=== PATIENT | male | born 1955 | race Caucasian/White ===

== ENCOUNTER 2016-08-15 15:45 | Observation (INO) | payer OTHER ==
[~2016-08-15] VITALS: Ht 190.5 cm; Wt 149.1 kg
[~2016-08-15 15:45] MED LIST: ASPI81TA28 PO; CRG25 PO; DILT120C68 PO; LOSA1TAB38 PO; LSX80 PO; SPR25 PO; WARF10TA4 PO; WARF5TAB7 PO
[2016-08-15] MEDS ORDERED: PIPERACILLIN/TAZOBACTAM 4.5 GM/100ML D5W IV STA (17:56)
[2016-08-15] MEDS ORDERED: VANCOMYCIN INJ 1,000 MG in SODIUM CHLORIDE 0.9% 250ML 250 ML IV STA (17:56)
[2016-08-15] MEDS ORDERED: IBUP-1050 PO (18:46)
[2016-08-15] MEDS ORDERED: OXYM0.056 NAE (18:46)
--- NOTE | 2016-08-15 18:55 | DIAGNOSTIC IMAGING REPORT ---
CHEST ONE VIEW PORTABLE CLINICAL HISTORY: R foot infection dyspnea COMPARISON STUDY: 09/17/2009 FINDINGS: Moderate stable cardiomegaly. Prior median sternotomy. Cardiac pacemaker/fibrillator. Lungs are clear. IMPRESSION: Stable cardiomegaly. Otherwise negative study Electronically signed by: Mo Taylor M.D. 08/15/2016 6:54 PM Dictated Date/Time: 08/15/2016 6:53 PM
--- NOTE | 2016-08-15 18:58 | DIAGNOSTIC IMAGING REPORT ---
RIGHT FOOT MIN 3 VIEWS ROUTINE CLINICAL HISTORY: R foot infection Right infection COMPARISON: None. DISCUSSION: The bones and joint spaces appear intact. There is no evidence of fracture, dislocation or bony disease. Dorsal soft tissue edema. No acute bony abnormality. IMPRESSION: Soft tissue edema. No acute bony abnormality. Electronically signed by: Mo Taylor M.D. 08/15/2016 6:57 PM Dictated Date/Time: 08/15/2016 6:55 PM
[2016-08-15] MEDS ORDERED: DIPHTHERIA/TETANUS/PERTUSSIS 0.5 ML SYR/VIAL IM. ONE (19:15)
[2016-08-15 19:30] LABS: BASO % 0.6 %; BASO ABS # 0.04 K/uL (0-0.2); COMPLETE YES; EOS % 5.4 %; HEMATOCRIT 41.7 % (42-52); IG% 0.6 %; LYMPH % 15.4 %; LYMPH ABS # 0.97 K/uL (1.2-3.4); MEAN CELL VOLUME 86.3 fL (80-100); MEAN CORPUSCULAR HEMOGLOBIN 29.4 pg (25-34); MEAN CORPUSCULAR HGB CONC 34.1 g/dl (32-36); MEAN PLATELET VOLUME 10.5 fL (7.4-10.4); MONO % 12.4 %; NEUT % 65.6 %; PLATELET COUNT 227 K/uL (130-400); RED BLOOD COUNT 4.83 M/uL (4.7-6.1); WHITE BLOOD COUNT 6.29 K/uL (4.8-10.8)
[2016-08-15 19:48] LABS: BUN/CREATININE RATIO 15.8 (10-20); CALCIUM 9.1 mg/dl (8.5-10.1); CREATININE 1.1 mg/dl (0.60-1.40); POTASSIUM 4.4 mmol/L (3.5-5.1)
--- NOTE | 2016-08-15 20:02 | EMERGENCY ROOM VISIT NOTE ---
ED Visit Note First contact with patient: 17:35 I have seen and examined this patient with Laz Dunbar and generally agree with the treatment plan as discussed. Current/Historical Medications Scheduled Carvedilol (Carvedilol), 25 MG PO BID Diltiazem Hcl Ext Rel (Tiazac), 120 MG PO QAM Furosemide (Furosemide), 80 MG PO DAILY@1800 Losartan Potassium (Cozaar), 100 MG PO QAM Oxymetazoline Hcl (Afrin), 1 SPRAY BONITA QAM Spironolactone (Spironolactone), 25 MG PO QPM Warfarin Sod (Jantoven), 10 MG PO 5XWK Warfarin Sod (Jantoven), 7.5 MG PO 2XWK Scheduled PRN Ibuprofen (Advil), 200 MG PO Q6 PRN for Pain Allergies Coded Allergies: Lisinopril (Verified Adverse Reaction, Unknown, "UNCONTROLABLE COUGH.", ) Uncoded Allergies: BANDAIDS (Allergy, Mild, RASH, 09/15/14) Vital Signs Date Time Temp Pulse Resp B/P Pulse Ox O2 Delivery O2 Flow Rate FiO2 08/15/16 17:50 36.8 77 22 150/88 98 Room Air 08/15/16 15:47 36.6 82 18 126/78 97 Room Air Laboratory Results 08/15/16 18:00 Red Blood Count 4.83, Mean Corpuscular Volume 86.3, Mean Corpuscular Hemoglobin 29.4, Mean Corpuscular Hemoglobin Concent 34.1, Mean Platelet Volume 10.5, Neutrophils (%) (Auto) 65.6, Lymphocytes (%) (Auto) 15.4, Monocytes (%) (Auto) 12.4, Eosinophils (%) (Auto) 5.4, Basophils (%) (Auto) 0.6, Neutrophils # (Auto ) 4.12, Lymphocytes # (Auto) 0.97, Monocytes # (Auto) 0.78, Eosinophils # (Auto ) 0.34, Basophils # (Auto) 0.04 08/15/16 18:00 Test 08/15/16 18:00 08/15/16 18:14 White Blood Count 6.29 K/uL (4.8-10.8) Red Blood Count 4.83 M/uL (4.7-6.1) Hemoglobin 14.2 g/dL (14.0-18.0) Hematocrit 41.7 % (42-52) Mean Corpuscular Volume 86.3 fL (80-100) Mean Corpuscular Hemoglobin 29.4 pg (25-34) Mean Corpuscular Hemoglobin Concent 34.1 g/dl (32-36) Platelet Count 227 K/uL (130-400) Mean Platelet Volume 10.5 fL (7.4-10.4) Neutrophils (%) (Auto) 65.6 % Lymphocytes (%) (Auto) 15.4 % Monocytes (%) (Auto) 12.4 % Eosinophils (%) (Auto) 5.4 % Basophils (%) (Auto) 0.6 % Neutrophils # (Auto) 4.12 K/uL (1.4-6.5) Lymphocytes # (Auto) 0.97 K/uL (1.2-3.4) Monocytes # (Auto) 0.78 K/uL (0.11-0.59) Eosinophils # (Auto) 0.34 K/uL (0-0.5) Basophils # (Auto) 0.04 K/uL (0-0.2) RDW Standard Deviation 44.5 fL (36.4-46.3) RDW Coefficient of Variation 14.2 % (11.5-14.5) Immature Granulocyte % (Auto) 0.6 % Immature Granulocyte # (Auto) 0.04 K/uL (0.00-0.02) Erythrocyte Sedimentation Rate 17 mm/hr (0-14) Anion Gap 7.0 mmol/L (3-11) Est Creatinine Clear Calc Drug Dose 108.7 ml/min Estimated GFR () 82.9 Estimated GFR (Non- 71.6 BUN/Creatinine Ratio 15.8 (10-20) Calcium Level 9.1 mg/dl (8.5-10.1) C-Reactive Protein 0.70 mg/dl (0-0.29) Bedside Lactic Acid Venous 1.17 mmol/L (0.90-1.70) Medications Administered Medications (Trade) Dose Ordered Sig/Bronwyn Route Start Time Stop Time Status Last Admin Dose Admin Vancomycin HCl/ Sodium Chloride (Vancomycin Inj/ Nss 250ml) 270 ml @ 125 mls/hr NOW STAT IV 08/15/16 17:56 08/15/16 20:05 08/15/16 18:57 125 MLS/HR Piperacillin Sod/ Tazobactam Sod (Zosyn Iv) 4.5 gm NOW STAT IV 08/15/16 17:56 08/15/16 18:02 DC 08/15/16 18:57 4.5 GM Diphtheria/ Pertussis/Tetanus Vacc (Adacel Inj) 0.5 ml ONCE ONCE IM. 08/15/16 19:15 08/15/16 19:16 DC 08/15/16 19:32 0.5 ML Departure Information Referrals No Doctor, Assigned (PCP) Patient Instructions [facility]
--- NOTE | 2016-08-15 20:28 | History and Physical ---
History & Physical Date & Time of Service: Aug 15, 2016 at 20:28 . Chief Complaint: right foot pain . Primary Care Physician: No Doctor, Assigned . History of Present Illness Source: patient, family, clinic records, hospital records 61 YO male followed by Dr. Kofi Banda for primary care as well as Cardiology. History of bicuspid aortic valve, s/p mechanical AVR, aneurysm ascending aorta, s/p repair, CAD, systolic CHF, chronic AF on warfarin. Dropped firewood on his right foot 1 week prior to admission. Developed progressive pain and swelling of the foot with a small amount of clear drainage. No fever, chills, sweats. Uncertain when last tetanus booster was. Took acetaminophen and ibuprofen with some relief. He was seen in an urgent care facility and referred to the ED. . Past Medical/Surgical History Chronic and Resolved Medical Problems: (1) Anticoagulated on warfarin Status: Chronic (2) Ascending aortic aneurysm Permanent Comment: s/p repair Status: Chronic (3) Atrial fibrillation Status: Chronic (4) Bicuspid aortic valve Permanent Comment: s/p AVR Status: Chronic (5) Coronary artery disease Status: Chronic (6) Hypertension Status: Chronic (7) Systolic CHF, chronic Status: Chronic (8) Vitreous hemorrhage of left eye Status: Resolved Surgical Problems: (1) Status post aortic valve replacement with prosthetic valve Status: Chronic (2) Status post thoracic aortic aneurysm repair Permanent Comment: 2010 Status: Chronic . Family History FH: heart disease FH: hypertension Social History Smoking Status: Current Every Day Smoker Alcohol Use: occasionally Immunizations History of Influenza Vaccine: Unknown History of Tetanus Vaccine?: Unknown History of Pneumococcal: Yes Pneumococcal Date: Aug 26, 2009 History of Hepatitis B Vaccine: Unknown Multi-Drug Resistant Organisms History of MDRO: No Allergies Coded Allergies: Lisinopril (Verified Adverse Reaction, Unknown, "UNCONTROLABLE COUGH.", ) Uncoded Allergies: BANDAIDS (Allergy, Mild, RASH, 09/15/14) Home Medications Scheduled Carvedilol (Carvedilol), 25 MG PO BID Diltiazem Hcl Ext Rel (Tiazac), 120 MG PO QAM Furosemide (Furosemide), 80 MG PO DAILY@1800 Losartan Potassium (Cozaar), 100 MG PO QAM Oxymetazoline Hcl (Afrin), 1 SPRAY BONITA QAM Spironolactone (Spironolactone), 25 MG PO QPM Warfarin Sod (Jantoven), 10 MG PO 5XWK Warfarin Sod (Jantoven), 7.5 MG PO 2XWK Scheduled PRN Ibuprofen (Advil), 200 MG PO Q6 PRN for Pain Review of Systems Constitutional: No chills, No fever, No sweats, No weight loss Eyes: + worsening of vision (no recent changes), No diplopia ENT: + nasal symptoms, No sore throat Respiratory: + dyspnea on exertion, No cough Cardiovascular: + edema (chronic), No chest pain, No palpitations Abdomen: No GI bleeding, No diarrhea, No nausea, No pain, No vomiting Musculoskeletal: + problem reported (right foot pain), No joint pain Genitourinary - Male: No dysuria, No hematuria Endocrine: No excessive thirst, No excessive urination, No fatigue Hematologic / Lymphatic: + abnormal bleeding/bruising, No swollen lymph nodes Integumentary: No itch, No new/changing skin lesions, No rash Physical Exam Vital Signs Date Time Temp Pulse Resp B/P Pulse Ox O2 Delivery O2 Flow Rate FiO2 08/15/16 20:16 77 22 156/99 98 Room Air 08/15/16 17:50 36.8 77 22 150/88 98 Room Air 08/15/16 15:47 36.6 82 18 126/78 97 Room Air General Appearance: no apparent distress, + obese Head: normocephalic, atraumatic Eyes: normal inspection, PERRL, EOMI, sclerae normal ENT: normal ENT inspection, hearing grossly normal, pharynx normal Neck: supple, no adenopathy, thyroid normal, no JVD, trachea midline Respiratory/Chest: lungs clear, no respiratory distress, no accessory muscle use Cardiovascular: no gallop, + irregularly irregular, + pertinent finding ( mechanical valve sounds in aortic position; 1-2+ pretibial edema) Abdomen/GI: normal bowel sounds, non tender, soft, no organomegaly, no pulsatile mass Extremities/Musculoskelatal: + pertinent finding (1-2+ pretibial edema with chronic venous stasis changes; 2 cm ulceration dorsum of right foot; erythema and swelling dorsum right foot) Neurologic/Psych: ux design manager II-XII nml as tested (PERRL, EOMI, no facial palsy, no dysarthria), no motor/sensory deficits (motor strength grossly intact), alert, normal mood/affect, oriented x 3 Skin: warm/dry Lymphatic: no adenopathy Diagnostics Laboratory Results Results Past 24 Hours Test 08/15/16 18:00 08/15/16 18:14 Range/Units White Blood Count 6.29 4.8-10.8 K/uL Red Blood Count 4.83 4.7-6.1 M/uL Hemoglobin 14.2 14.0-18.0 g/dL Hematocrit 41.7 42-52 % Mean Corpuscular Volume 86.3 80-100 fL Mean Corpuscular Hemoglobin 29.4 25-34 pg Mean Corpuscular Hemoglobin Concent 34.1 32-36 g/dl Platelet Count 227 130-400 K/uL Mean Platelet Volume 10.5 7.4-10.4 fL Neutrophils (%) (Auto) 65.6 % Lymphocytes (%) (Auto) 15.4 % Monocytes (%) (Auto) 12.4 % Eosinophils (%) (Auto) 5.4 % Basophils (%) (Auto) 0.6 % Neutrophils # (Auto) 4.12 1.4-6.5 K/uL Lymphocytes # (Auto) 0.97 1.2-3.4 K/uL Monocytes # (Auto) 0.78 0.11-0.59 K/uL Eosinophils # (Auto) 0.34 0-0.5 K/uL Basophils # (Auto) 0.04 0-0.2 K/uL RDW Standard Deviation 44.5 36.4-46.3 fL RDW Coefficient of Variation 14.2 11.5-14.5 % Immature Granulocyte % (Auto) 0.6 % Immature Granulocyte # (Auto) 0.04 0.00-0.02 K/uL Erythrocyte Sedimentation Rate 17 0-14 mm/hr Sodium Level 140 136-145 mmol/L Potassium Level 4.4 3.5-5.1 mmol/L Chloride Level 104 98-107 mmol/L Carbon Dioxide Level 29 21-32 mmol/L Anion Gap 7.0 3-11 mmol/L Blood Urea Nitrogen 17 7-18 mg/dl Creatinine 1.10 0.60-1.40 mg/dl Est Creatinine Clear Calc Drug Dose 108.7 ml/min Estimated GFR () 82.9 Estimated GFR (Non- 71.6 BUN/Creatinine Ratio 15.8 10-20 Random Glucose 109 70-99 mg/dl Calcium Level 9.1 8.5-10.1 mg/dl C-Reactive Protein 0.70 0-0.29 mg/dl Bedside Lactic Acid Venous 1.17 0.90-1.70 mmol/L Microbiology Results 08/15/16 Blood Culture, Received Pending 08/15/16 Blood Culture, Received Pending Diagnostic Radiology CHEST ONE VIEW PORTABLE COMPARISON STUDY: 09/17/2009 FINDINGS: Moderate stable cardiomegaly. Prior median sternotomy. Cardiac pacemaker/fibrillator. Lungs are clear. IMPRESSION: Stable cardiomegaly. Otherwise negative study Electronically signed by: Mo Taylor M.D. 08/15/2016 6:54 PM RIGHT FOOT MIN 3 VIEWS ROUTINE DISCUSSION: The bones and joint spaces appear intact. There is no evidence of fracture, dislocation or bony disease. Dorsal soft tissue edema. No acute bony abnormality. IMPRESSION: Soft tissue edema. No acute bony abnormality. Electronically signed by: Mo Taylor M.D. 08/15/2016 6:57 PM EKG EKG performed at 18:24 reviewed and demonstrated AF at 70 / minute, poor R-wave progression, biphasic / inverted T-waves inferiorly. . Impression Assessment and Plan CELLULITIS RIGHT FOOT Dropped piece of firewood on foot; now with ulceration and cellulitis. No fever or leukocytosis, but c-reactive protein elevated. No apparent osteomyelitis per plain films of foot. Unknown when last tetanus booster was. Received diphtheria/tetanus/pertussis vaccine in ED. Blood cultures obtained in ED. Received IV vancomycin and piperacillin/tazobactam which will be continued. Consult ID for their input. CHRONIC LEFT VENTRICULAR SYSTOLIC HEART FAILURE Compensated. Continue carvedilol, losartan, spironolactone, furosemide. CAD No anginal symptoms. Continue carvedilol. CHRONIC AF Rate controlled. Continue carvedilol and diltiazem. Continue warfarin. INR 2.0. Increase warfarin dose to 10 mg daily- monitor closely while on antibiotic therapy. S/P AVR Continue warfarin as discussed above. HYPERTENSION BP high in ED, but did not take his evening meds yet. Continue carvedilol, diltiazem, losartan, diuretics. Follow and titrate Rx. VTE PROPHYLAXIS Continue warfarin. DISPOSITION Admit to Med-Surg Unit. Expected discharge to home. Follow-up with Dr. Kofi Banda. . VTE Prophylaxis VTE Risk Assessment Done? Y/N: Yes Risk Level: Moderate Given or contraindicated: Warfarin (Coumadin) Additional Copies To Kofi Banda D.O.
--- NOTE | 2016-08-15 22:16 | EMERGENCY ROOM VISIT NOTE ---
History First contact with patient: 17:35 Chief Complaint: FOOT PAIN Stated Complaint: FRACTURE IN RT FOOT WITH OPEN WOUND History of Present Illness The patient is a 61 year old male who presents to the Emergency Room with complaints of a right foot infection and fractured. The patient reports that he dropped a board on his foot last Monday. The patient did have a wound on the foot that he cleansed and covered with antibiotic ointment and dressing. He did not seek any further follow-up for his injury. The patient reports that over the past 3 days, he has noticed redness and swelling of the foot. He was seen today at [facility] urgent care with an x-ray showing a fracture. He was then sent here for further management. The patient denies any fevers or chills or significant drainage from the wound. The patient has had a prior history of cellulitis requiring hospitalization. The patient and family deny any prior history of antibiotic resistant infections. The patient denies any significant pain with nonweightbearing. Tetanus immunization is unknown. Review of Systems HEENT: Denies dizziness, visual problems, hearing loss, tinnitus. Denies difficulty swallowing or oral lesions. PULMONARY: Denies cough, shortness of breath, sputum production or hemoptysis. CARDIOVASCULAR: Denies chest pain, palpitations, dyspnea on exertion, orthopnea or peripheral edema. GASTROINTESTINAL: Denies diarrhea, constipation, nausea, vomiting, or abdominal pain. GENITOURINARY: Denies dysuria, frequency, urgency or nocturia. NEUROLOGIC: Denies history of epilepsy, CVA, TIA or chronic headaches. MUSCULOSKELETAL: Denies history of joint tenderness/swelling. SKIN: Denies rashes or lesions. PSYCHIATRIC: Denies history of depression or mental illness. ENDOCRINE: Denies history of diabetes or thyroid disorders. Past Medical/Surgical History Medical Problems: (1) Atrial Fibrillation (2) Cardiomegaly (3) Cellulitis of foot (4) Oswaldo Aorta Valv Insuffic (5) Congestive Heart Failure Nos (6) Hypertension Nos (7) Lichenification (8) Tobacco Use Disorder Surgical Problems: (1) Cardiac Pacemaker In Situ (2) Heart Valve Transplant (3) Unilat Inguinal Hernia Family History FH: heart disease FH: hypertension Social History Smoking Status: Never Smoker Alcohol Use: none Marital Status: Housing Status: lives with family Occupation Status: disabled Current/Historical Medications Scheduled Carvedilol (Carvedilol), 25 MG PO BID Diltiazem Hcl Ext Rel (Tiazac), 120 MG PO QAM Furosemide (Furosemide), 80 MG PO DAILY@1800 Losartan Potassium (Cozaar), 100 MG PO QAM Oxymetazoline Hcl (Afrin), 1 SPRAY BONITA QAM Spironolactone (Spironolactone), 25 MG PO QPM Warfarin Sod (Jantoven), 10 MG PO 5XWK Warfarin Sod (Jantoven), 7.5 MG PO 2XWK Scheduled PRN Ibuprofen (Advil), 200 MG PO Q6 PRN for Pain Allergies Coded Allergies: Lisinopril (Verified Adverse Reaction, Unknown, "UNCONTROLABLE COUGH.", ) Uncoded Allergies: BANDAIDS (Allergy, Mild, RASH, 09/15/14) Physical Exam Vital Signs Date Time Temp Pulse Resp B/P Pulse Ox O2 Delivery O2 Flow Rate FiO2 08/15/16 20:16 77 22 156/99 98 Room Air 08/15/16 17:50 36.8 77 22 150/88 98 Room Air 08/15/16 15:47 36.6 82 18 126/78 97 Room Air Physical Exam CONSTITUTIONAL: Healthy and well nourished. Alert and oriented X 3 with positive affect. Patient does not appear in any acute distress. HEENT: Normocephalic, atraumatic. Pupils equal, round and reactive. NECK: Full active range of motion without discomfort. RESPIRATORY: Clear to auscultation bilaterally with no wheezing, crackles, rhonchi or stridor. CARDIOVASCULAR: Regular rate and rhythm with no murmurs, rubs or gallops. GASTROINTESTINAL: Bowel sounds present in all quadrants. Soft and nontender to palpation. MUSCULOSKELETAL: Examination of the right foot shows an open wound with minimal drainage. The patient has notable edema and erythema of the dorsum of the foot. The patient has significant lichenification of the plantar aspect of the foot. He has chronic skin changes to bilateral lower extremities without edema or other open wounds. Pedal pulses are intact. INTEGUMENTARY: No rash or other significant dermatologic conditions noted. NEUROLOGIC: Right foot and toes are sensory intact. Medical Decision & Procedures ER Provider Diagnostic Interpretation: My interpretation of right foot x-rays does not show any acute fractures, dislocation or radiopaque foreign bodies. Radiologist report is as follows: RIGHT FOOT MIN 3 VIEWS ROUTINE CLINICAL HISTORY: R foot infection Right infection COMPARISON: None. DISCUSSION: The bones and joint spaces appear intact. There is no evidence of fracture, dislocation or bony disease. Dorsal soft tissue edema. No acute bony abnormality. IMPRESSION: Soft tissue edema. No acute bony abnormality. CHEST ONE VIEW PORTABLE CLINICAL HISTORY: R foot infection dyspnea COMPARISON STUDY: 09/17/2009 FINDINGS: Moderate stable cardiomegaly. Prior median sternotomy. Cardiac pacemaker/fibrillator. Lungs are clear. IMPRESSION: Stable cardiomegaly. Otherwise negative study My interpretation of an ECG shows atrial fibrillation at a rate of 72 bpm. Comparison with an ECG dated 09/21/09 does not show any significant changes. No obvious ST elevations. Laboratory Results 08/15/16 18:00 Red Blood Count 4.83, Mean Corpuscular Volume 86.3, Mean Corpuscular Hemoglobin 29.4, Mean Corpuscular Hemoglobin Concent 34.1, Mean Platelet Volume 10.5, Neutrophils (%) (Auto) 65.6, Lymphocytes (%) (Auto) 15.4, Monocytes (%) (Auto) 12.4, Eosinophils (%) (Auto) 5.4, Basophils (%) (Auto) 0.6, Neutrophils # (Auto ) 4.12, Lymphocytes # (Auto) 0.97, Monocytes # (Auto) 0.78, Eosinophils # (Auto ) 0.34, Basophils # (Auto) 0.04 08/15/16 18:00 Test 08/15/16 18:00 08/15/16 18:10 08/15/16 18:14 White Blood Count 6.29 K/uL (4.8-10.8) Red Blood Count 4.83 M/uL (4.7-6.1) Hemoglobin 14.2 g/dL (14.0-18.0) Hematocrit 41.7 % (42-52) Mean Corpuscular Volume 86.3 fL (80-100) Mean Corpuscular Hemoglobin 29.4 pg (25-34) Mean Corpuscular Hemoglobin Concent 34.1 g/dl (32-36) Platelet Count 227 K/uL (130-400) Mean Platelet Volume 10.5 fL (7.4-10.4) Neutrophils (%) (Auto) 65.6 % Lymphocytes (%) (Auto) 15.4 % Monocytes (%) (Auto) 12.4 % Eosinophils (%) (Auto) 5.4 % Basophils (%) (Auto) 0.6 % Neutrophils # (Auto) 4.12 K/uL (1.4-6.5) Lymphocytes # (Auto) 0.97 K/uL (1.2-3.4) Monocytes # (Auto) 0.78 K/uL (0.11-0.59) Eosinophils # (Auto) 0.34 K/uL (0-0.5) Basophils # (Auto) 0.04 K/uL (0-0.2) RDW Standard Deviation 44.5 fL (36.4-46.3) RDW Coefficient of Variation 14.2 % (11.5-14.5) Immature Granulocyte % (Auto) 0.6 % Immature Granulocyte # (Auto) 0.04 K/uL (0.00-0.02) Erythrocyte Sedimentation Rate 17 mm/hr (0-14) Anion Gap 7.0 mmol/L (3-11) Est Creatinine Clear Calc Drug Dose 108.7 ml/min Estimated GFR () 82.9 Estimated GFR (Non- 71.6 BUN/Creatinine Ratio 15.8 (10-20) Calcium Level 9.1 mg/dl (8.5-10.1) C-Reactive Protein 0.70 mg/dl (0-0.29) Bedside Lactic Acid Venous 1.17 mmol/L (0.90-1.70) The above labs were reviewed. Bedside lactic acid is normal. C-reactive protein and sedimentation rate are elevated. Electrolytes are normal. Medications Administered Medications (Trade) Dose Ordered Sig/Bronwyn Route Start Time Stop Time Status Last Admin Dose Admin Vancomycin HCl/ Sodium Chloride (Vancomycin Inj/ Nss 250ml) 270 ml @ 125 mls/hr NOW STAT IV 08/15/16 17:56 08/15/16 20:05 DC 08/15/16 18:57 125 MLS/HR Piperacillin Sod/ Tazobactam Sod (Zosyn Iv) 4.5 gm NOW STAT IV 08/15/16 17:56 08/15/16 18:02 DC 08/15/16 18:57 4.5 GM Diphtheria/ Pertussis/Tetanus Vacc (Adacel Inj) 0.5 ml ONCE ONCE IM. 08/15/16 19:15 08/15/16 19:16 DC 08/15/16 19:32 0.5 ML ED Course Patient history and physical exam were performed. Nurse's notes were reviewed. Vital signs were reviewed and normal. The patient is afebrile. He does not appear in any acute distress. The patient did not bring any x-ray images with him. IV access was established, and labs were drawn. Given patient history of a reported fracture, I did elect to start IV antibiotics as well. The patient was administered IV Rocephin and vancomycin after blood cultures 2 were collected. The patient was administered Adacel IM. Point of care lactic acid was normal. Remaining labs were reviewed without leukocytosis or electrolyte abnormality. Sedimentation rate and CRP are elevated. X-rays of the right foot does not show any acute findings. Portable chest x-ray shows stable cardiomegaly, an ECG shows atrial fibrillation. The patient was also seen and examined by Dr. Lopez, ED attending physician, who agrees that hospitalist evaluation is warranted for an acute cellulitis. Consultation was placed with Dr. Polo, [facility] hospitalist for further evaluation. Please see his dictation for further treatment and final disposition. Impression Primary Impression: Cellulitis of foot Additional Impression: Unspecified open wound, right foot, initial encounter Departure Information Referrals No Doctor, Assigned (PCP) Patient Instructions [facility] Problem Qualifiers
[2016-08-15 22:20] LABS: PROTHROMBIN TIME (PATIENT) 21.5 SECONDS (9.0-12.0)
[2016-08-15] MEDS ORDERED: PIPERACILL/TAZOBAC CONSULT ACTIVE PRN (22:45)
[2016-08-15] MEDS ORDERED: IV FLUIDS COMPLETED PRN (22:45)
[2016-08-15] MEDS ORDERED: VANCOMYCIN CONSULT ACTIVE PRN (22:45)
[2016-08-15] MEDS ORDERED: WARFARIN SOD 5 MG TAB PO STA (22:48)
[2016-08-15] MEDS ORDERED: SPIRONOLACTONE 25 MG TAB PO ONE (23:00)
[2016-08-15] MEDS ORDERED: VANCOMYCIN INJ 2,700 MG in SODIUM CHLORIDE 0.9% 500ML 500 ML IV SCH (23:00)
[2016-08-15] MEDS ORDERED: CARVEDILOL 25 MG TAB PO ONE (23:00)
[2016-08-15] MEDS ORDERED: FUROSEMIDE 80 MG TAB PO ONE (23:00)
[2016-08-16] VITALS: BP 122/82; PULSE 77; TEMP 36.8; O2SAT 96
[2016-08-16] MEDS: PIPERACILL/TAZOBAC IV 4.5 GM in DEXTROSE 5% 100ML 100 ML IV SCH ×3 (01:17→15:50)
[2016-08-16 02:20] VITALS: Ht 190.5 cm; Wt 149.1 kg
[2016-08-16] MEDS: CARVEDILOL 25 MG TAB PO SCH ×2 (05:55→18:08)
[2016-08-16] MEDS: DILTIAZEM HCL 120 MG EXT REL CAP PO SCH (05:55)
[2016-08-16] MEDS: LOSARTAN POTASSIUM 50 MG TAB PO SCH (05:56)
[2016-08-16 05:57] VITALS: BP 110/74; PULSE 76
[2016-08-16 08:00] VITALS: BP 130/72; PULSE 75; TEMP 36.3; O2SAT 95
[2016-08-16] MEDS ORDERED: DILTIAZEM HCL 120 MG EXT REL CAP PO SCH (09:00)
[2016-08-16] MEDS ORDERED: CARVEDILOL 25 MG TAB PO SCH (09:00)
[2016-08-16] MEDS ORDERED: LOSARTAN POTASSIUM 50 MG TAB PO SCH (09:00)
--- NOTE | 2016-08-16 09:39 | Pharmacy Progress Note ---
Pharmacy Antibiotic Consult Date of Service: Aug 16, 2016. Pharmacy Dosing Scope Pharmacy is consulted to initiate vancomycin and zosyn IV dosing therapy, order appropriate labs and adjust drug dose/frequency. Subjective The patient is a 61 year old male admitted on Aug 15, 2016 at 20:27. Objective Height (Feet): 6 Height (Inches): 3.00 Weight (Kilograms): 149.100 Lab Results (24hrs): Laboratory Tests Test 08/15/16 18:00 BUN/Creatinine Ratio 15.8 Blood Urea Nitrogen 17 mg/dl Creatinine 1.10 mg/dl White Blood Count 6.29 K/uL Red Blood Count 4.83 M/uL Hemoglobin 14.2 g/dL Hematocrit 41.7 % Mean Corpuscular Volume 86.3 fL Mean Corpuscular Hemoglobin 29.4 pg Mean Corpuscular Hemoglobin Concent 34.1 g/dl Platelet Count 227 K/uL Mean Platelet Volume 10.5 fL Neutrophils (%) (Auto) 65.6 % Lymphocytes (%) (Auto) 15.4 % Monocytes (%) (Auto) 12.4 % Eosinophils (%) (Auto) 5.4 % Basophils (%) (Auto) 0.6 % Neutrophils # (Auto) 4.12 K/uL Lymphocytes # (Auto) 0.97 K/uL Monocytes # (Auto) 0.78 K/uL Eosinophils # (Auto) 0.34 K/uL Basophils # (Auto) 0.04 K/uL Micro Results: Item Value Date Time Blood Culture Received 08/15/16 1810 Blood Pending Blood Culture Received 08/15/16 1800 Blood Pending Assessment & Plan Patient started on vancomycin and zosyn for possible cellulitis infection after dropping a piece of firewood on foot. Patient is afebrile with no leukocytosis. Does have hx of reported fracture. BC x 2 are pending. ID is also consulted for the patient. Vancomycin: * Patient received LD of vancomycin 1 gm x 1 in the ED, then an additional 2700 mg x 1 later last evening (~25 mg/kg total) * Will dose vancomycin 1500 mg iv q 12 hrs to achieve an estimated trough ~15 mcg/ml (goal for cellulitis) * Was less aggressive with dosing since cellulitis infection and also concern for drug accumulation since BMI>35 kg/m2 (actual ~41 kg/m2) * Estimated kinetics: t1/2~9 hrs, ke~0.08hr-1, Vdf~0.6 L/kg) * Will obtain trough prior to the 1400 dose on 08/17 to ensure therapeutic (will be before steady state, since concern for accumulation) Zosyn: * Patient received 4.5 gm iv x 1 in ED, then started on 4.5 gm iv q 8 hrs which is appropriate for CrCl>20 and elevated BMI>35 kg/m2 (CrCl ~108 ml/min) Pharmacy will continue to follow and will adjust dose/frequency as necessary. Thank you
[2016-08-16 11:24] VITALS: BP 129/76; PULSE 75; TEMP 36.7; O2SAT 95
--- NOTE | 2016-08-16 11:43 | Medical Consult ---
Consultation Date of Consultation: Aug 16, 2016. Attending Physician: Demario Roblero MD Reason for Consultation: Cellulitis History of Present Illness 61-year-old male with history of aortic valve replacement for bicuspid valve, coronary artery disease, aortic aneurysm status post repair, chronic atrial fibrillation on warfarin therapy, was in usual state of health until approximately 1 week ago when he dropped a piece of firewood on his right foot. He treated it with local care only, but developed progressively worsening redness, pain, and swelling of the foot. Ultimately came to the emergency room and was admitted for further management. X-ray of the foot, read by me, shows no obvious fracture, and only soft tissue swelling. Patient has been started empirically on IV vancomycin and Zosyn. He is tolerating it reasonably well thus far. He denies any significant fever, chills, or other systemic complaints. Blood cultures are no growth to date. Past Medical/Surgical History Medical Problems: (1) Unspecified open wound, right foot, initial encounter Status: Acute Medical Problems: (1) Anticoagulated on warfarin (2) Ascending aortic aneurysm (3) Atrial fibrillation (4) Atrial Fibrillation (5) Bicuspid aortic valve (6) Cardiomegaly (7) Oswaldo Aorta Valv Insuffic (8) Congestive Heart Failure Nos (9) Coronary artery disease (10) Hypertension (11) Hypertension Nos (12) Lichenification (13) Systolic CHF, chronic (14) Tobacco Use Disorder (15) Vitreous hemorrhage of left eye Surgical Problems: (1) Cardiac Pacemaker In Situ (2) Heart Valve Transplant (3) Status post aortic valve replacement with prosthetic valve (4) Status post thoracic aortic aneurysm repair (5) Unilat Inguinal Hernia Family History FH: heart disease FH: hypertension Social History Smoking Status: Light Tobacco Smoker Alcohol Use: occasionally Marital Status: Housing Status: lives with family Occupation Status: disabled Allergies Coded Allergies: Lisinopril (Verified Adverse Reaction, Unknown, "UNCONTROLABLE COUGH.", ) Uncoded Allergies: BANDAIDS (Allergy, Mild, RASH, 09/15/14) Current Inpatient Medications Current Inpatient Medications Medications (Trade) Dose Ordered Sig/Bronwyn Route Start Time Stop Time Status Last Admin Dose Admin Furosemide (Lasix Tab) 80 mg DAILY@1800 PO 08/16/16 18:00 09/14/16 17:59 Carvedilol (Coreg Tab) 25 mg Q12@0600,1800 PO 08/16/16 06:00 09/15/16 05:59 08/16/16 05:55 25 MG Diltiazem HCl (TIAzac CAP) 120 mg DAILY@0600 PO 08/16/16 06:00 09/15/16 05:59 08/16/16 05:55 120 MG Losartan Potassium (coZAAR TAB) 100 mg DAILY@0600 PO 08/16/16 06:00 09/15/16 05:59 08/16/16 05:56 100 MG Spironolactone 25 mg 25 mg DAILY@1800 PO 08/16/16 18:00 09/15/16 17:59 Piperacillin Sod/ Tazobactam Sod/ Dextrose (Zosyn Iv/D5 100ml) 120 ml @ 30 mls/hr Q8H IV 08/16/16 00:00 08/26/16 00:00 08/16/16 08:03 30 MLS/HR Vancomycin HCl (Consult) 1 ea UD PRN N/A 08/15/16 22:45 09/14/16 22:44 Piperacillin Sod/ Tazobactam Sod (Consult) 1 ea UD PRN N/A 08/15/16 22:45 09/14/16 22:44 Miscellaneous (Iv Fluids Completed) 1 ea PRN PRN N/A 08/15/16 22:45 08/15/17 22:44 Warfarin Sodium 10 mg 10 mg DAILY@1800 PO 08/16/16 18:00 09/15/16 17:59 Vancomycin HCl/ Sodium Chloride (Vancomycin Inj/ Nss 500ml) 530 ml @ 200 mls/hr Q12H IV 08/16/16 14:00 08/25/16 13:59 Review of Systems All systems were reviewed and are negative except as per HPI Physical Exam Date Time Temp Pulse Resp B/P Pulse Ox O2 Delivery O2 Flow Rate FiO2 08/16/16 11:24 36.7 75 14 129/76 95 Room Air 08/16/16 08:00 36.3 75 16 130/72 95 Room Air 08/16/16 08:00 95 Room Air 08/16/16 05:57 76 110/74 08/16/16 01:15 Room Air 08/16/16 00:00 36.8 77 20 122/82 96 Room Air 08/15/16 21:50 36.8 77 20 156/99 99 08/15/16 21:34 77 20 156/99 99 Room Air 08/15/16 21:10 72 20 154/88 100 Room Air 08/15/16 20:16 77 22 156/99 98 Room Air 08/15/16 17:50 36.8 77 22 150/88 98 Room Air 08/15/16 15:47 36.6 82 18 126/78 97 Room Air General Appearance: WD/WN, no apparent distress, + obese Head: normocephalic, atraumatic Eyes: normal inspection, EOMI, sclerae normal ENT: normal ENT inspection, hearing grossly normal, pharynx normal Neck: supple, no adenopathy, thyroid normal, trachea midline Respiratory/Chest: chest non-tender, lungs clear, normal breath sounds, no respiratory distress Cardiovascular: no gallop, + systolic murmur, + irregularly irregular Abdomen/GI: normal bowel sounds, non tender, soft, no organomegaly Back: normal inspection, no CVA tenderness Extremities/Musculoskelatal: no calf tenderness, + swelling, + pertinent finding ( bilateral chronic venous stasis changes, eschar on right foot) Neurologic/Psych: alert, normal mood/affect, oriented x 3 Skin: normal color, no rash, + pertinent finding ( cellulitis involving right foot) Lymphatic: no adenopathy Laboratory Results Date/Time Source Procedure Growth Status 08/15/16 18:10 Blood Blood Culture Pending Received 08/15/16 18:00 Blood Blood Culture Pending Received Last 24 Hours Test 08/15/16 18:00 08/15/16 18:10 08/15/16 18:14 08/16/16 06:59 White Blood Count 6.29 K/uL Red Blood Count 4.83 M/uL Hemoglobin 14.2 g/dL Hematocrit 41.7 % Mean Corpuscular Volume 86.3 fL Mean Corpuscular Hemoglobin 29.4 pg Mean Corpuscular Hemoglobin Concent 34.1 g/dl Platelet Count 227 K/uL Mean Platelet Volume 10.5 fL Neutrophils (%) (Auto) 65.6 % Lymphocytes (%) (Auto) 15.4 % Monocytes (%) (Auto) 12.4 % Eosinophils (%) (Auto) 5.4 % Basophils (%) (Auto) 0.6 % Neutrophils # (Auto) 4.12 K/uL Lymphocytes # (Auto) 0.97 K/uL Monocytes # (Auto) 0.78 K/uL Eosinophils # (Auto) 0.34 K/uL Basophils # (Auto) 0.04 K/uL RDW Standard Deviation 44.5 fL RDW Coefficient of Variation 14.2 % Immature Granulocyte % (Auto) 0.6 % Immature Granulocyte # (Auto) 0.04 K/uL Erythrocyte Sedimentation Rate 17 mm/hr Sodium Level 140 mmol/L Potassium Level 4.4 mmol/L Chloride Level 104 mmol/L Carbon Dioxide Level 29 mmol/L Anion Gap 7.0 mmol/L Blood Urea Nitrogen 17 mg/dl Creatinine 1.10 mg/dl Est Creatinine Clear Calc Drug Dose 108.7 ml/min Estimated GFR () 82.9 Estimated GFR (Non- 71.6 BUN/Creatinine Ratio 15.8 Random Glucose 109 mg/dl Calcium Level 9.1 mg/dl C-Reactive Protein 0.70 mg/dl Prothrombin Time 21.5 SECONDS Prothromb Time International Ratio 2.0 Bedside Lactic Acid Venous 1.17 mmol/L Hepatitis C Antibody Screen PRELIM POS Patient Name: SAGE DENNY Unit Number: [id number] Dictated: 08/15/161854 Transcribed: 08/15/161854 MS Printed Date/Time: [~ rep prt dt]/[~ rep prt tm] [~ rep ct labl] - [~ rep ct ivnm] [facility] [place] [address] Dictated: 08/15/161854 Transcribed: 08/15/161854 MS Printed Date/Time: [~ rep prt dt]/[~ rep prt tm] [~ rep ct labl] - [~ rep ct ivnm] RIGHT FOOT MIN 3 VIEWS ROUTINE CLINICAL HISTORY: R foot infection Right infection COMPARISON: None. DISCUSSION: The bones and joint spaces appear intact. There is no evidence of fracture, dislocation or bony disease. Dorsal soft tissue edema. No acute bony abnormality. IMPRESSION: Soft tissue edema. No acute bony abnormality. Electronically signed by: Mo Taylor M.D. 08/15/2016 6:57 PM Dictated Date/Time: 08/15/2016 6:55 PM The status of this report is Signed. Draft = Not yet reviewed or approved by Radiologist. Signed = Reviewed and approved by Radiologist. <AttendingPhy></AttendingPhy> <FamilyPhy>No Doctor, Assigned</FamilyPhy> < PrimaryPhy>No Doctor, Assigned</PrimaryPhy> <UnitNumber>[id number]</UnitNumber> <VisitNumber>[id number]</VisitNumber> <PatientName>SAGE DENNY</ PatientName> <DateOfBirth>1955</DateOfBirth> <Location>[facility]</Location> < ServiceDate>08/15/16</ServiceDate> <MNE>ESINDI</MNE> <OrderingPhy>Laz Dunbar</OrderingPhy> <OrderingPhyMNE>f rep ord dr cornelius</OrderingPhyMNE> < DictatingPhyMNE>f rep dict dr cornelius</DictatingPhyMNE> <CCListMNE>f rep ct mne</ CCListMNE> <AdmittingPhyMNE>f pt admit dr cornelius</AdmittingPhyMNE> <AttendingPhyMNE >f pt attend dr cornelius</AttendingPhyMNE> <ConsultingPhyMNE>f pt consult dr cornelius</ConsultingPhyMNE> <FamilyPhyMNE>f pt fam dr cornelius</FamilyPhyMNE> <OtherPhyMNE>f pt other dr cornelius</OtherPhyMNE> < PrimaryPhyMNE>f pt prim care dr cornelius</PrimaryPhyMNE> <ReferringPhyMNE>f pt referring dr cornelius</ReferringPhyMNE> Assessment & Plan cellulitis of the right foot following traumatic injury, and patient with chronic venous stasis disease, as well as being on Coumadin for atrial fibrillation. For now, combination of vancomycin and Zosyn is appropriate to cover likely is pathogens, and I will adjust based on culture results and clinical response. Will follow.
[2016-08-16] MEDS: VANCOMYCIN INJ 1,500 MG in SODIUM CHLORIDE 0.9% 500ML 500 ML IV SCH (13:36)
[2016-08-16 16:00] VITALS: O2SAT 96
--- NOTE | 2016-08-16 16:07 | Progress Note ---
Internal Med Progress Note Date of Service: Aug 16, 2016. Provider Documentation: SUBJECTIVE: resting comfortably denies any pain afebrile says he is doing ok says no when asked if he has any concerns OBJECTIVE: Vital Signs-as noted below Exam: General-alert and oriented x 3 Not in distress ENT-normal hearing Neck-no neck masses Lungs-cta b/l no wheezing no crackles Heart-s1 and s2 heard regular rate and rhythm no murmurs' Abdomen-soft bowel sounds present non tender no distension Extremities-mild pedal edema right foot dorsal aspect wound with black eschar and erythema surrounding it Neuro-alert and awake moves extremities Lab data as noted below. ASSESSMENT & PLAN: CELLULITIS RIGHT FOOT wound and cellulitis on right foot from dropped fire wood received DTP vaccine in ER on iv vanco and zosyn await cultures consulted ID and appreciate inputs CHRONIC LEFT VENTRICULAR SYSTOLIC HEART FAILURE Compensated. stable on carvedilol, losartan, spironolactone, furosemide. will monitor CAD asymptomatic Continue carvedilol. CHRONIC AF Rate controlled on carvedilol and diltiazem. Continue warfarin. INR 2.0. INR goal 2.5 to 3.5 for AVR Increased warfarin dose to 10 mg daily- will monitor INR closely while on antibiotic therapy. S/P AVR on Coumadin INR goal 2.5 to 3.5 HYPERTENSION on carvedilol, diltiazem, losartan, diuretics. will monitor VTE PROPHYLAXIS on warfarin. DISPOSITION to be determined pt/ot Vital Signs: Date Time Temp Pulse Resp B/P Pulse Ox O2 Delivery O2 Flow Rate FiO2 08/16/16 12:17 Room Air 08/16/16 11:24 36.7 75 14 129/76 95 Room Air 08/16/16 08:00 36.3 75 16 130/72 95 Room Air 08/16/16 08:00 95 Room Air 08/16/16 05:57 76 110/74 08/16/16 01:15 Room Air 08/16/16 00:00 36.8 77 20 122/82 96 Room Air 08/15/16 21:50 36.8 77 20 156/99 99 08/15/16 21:34 77 20 156/99 99 Room Air 08/15/16 21:10 72 20 154/88 100 Room Air 08/15/16 20:16 77 22 156/99 98 Room Air 08/15/16 17:50 36.8 77 22 150/88 98 Room Air Lab Results: Results Past 24 Hours Test 08/15/16 18:00 08/15/16 18:10 08/15/16 18:14 08/16/16 06:59 Range/Units White Blood Count 6.29 4.8-10.8 K/uL Red Blood Count 4.83 4.7-6.1 M/uL Hemoglobin 14.2 14.0-18.0 g/dL Hematocrit 41.7 42-52 % Mean Corpuscular Volume 86.3 80-100 fL Mean Corpuscular Hemoglobin 29.4 25-34 pg Mean Corpuscular Hemoglobin Concent 34.1 32-36 g/dl Platelet Count 227 130-400 K/uL Mean Platelet Volume 10.5 7.4-10.4 fL Neutrophils (%) (Auto) 65.6 % Lymphocytes (%) (Auto) 15.4 % Monocytes (%) (Auto) 12.4 % Eosinophils (%) (Auto) 5.4 % Basophils (%) (Auto) 0.6 % Neutrophils # (Auto) 4.12 1.4-6.5 K/uL Lymphocytes # (Auto) 0.97 1.2-3.4 K/uL Monocytes # (Auto) 0.78 0.11-0.59 K/uL Eosinophils # (Auto) 0.34 0-0.5 K/uL Basophils # (Auto) 0.04 0-0.2 K/uL RDW Standard Deviation 44.5 36.4-46.3 fL RDW Coefficient of Variation 14.2 11.5-14.5 % Immature Granulocyte % (Auto) 0.6 % Immature Granulocyte # (Auto) 0.04 0.00-0.02 K/uL Erythrocyte Sedimentation Rate 17 0-14 mm/hr Sodium Level 140 136-145 mmol/L Potassium Level 4.4 3.5-5.1 mmol/L Chloride Level 104 98-107 mmol/L Carbon Dioxide Level 29 21-32 mmol/L Anion Gap 7.0 3-11 mmol/L Blood Urea Nitrogen 17 7-18 mg/dl Creatinine 1.10 0.60-1.40 mg/dl Est Creatinine Clear Calc Drug Dose 108.7 ml/min Estimated GFR () 82.9 Estimated GFR (Non- 71.6 BUN/Creatinine Ratio 15.8 10-20 Random Glucose 109 70-99 mg/dl Calcium Level 9.1 8.5-10.1 mg/dl C-Reactive Protein 0.70 0-0.29 mg/dl Prothrombin Time 21.5 9.0-12.0 SECONDS Prothromb Time International Ratio 2.0 0.9-1.1 Bedside Lactic Acid Venous 1.17 0.90-1.70 mmol/L Hepatitis C Antibody Screen PRELIM POS NEG Microbiology Results 08/15/16 Blood Culture, Received Pending 08/15/16 Blood Culture, Received Pending
[2016-08-16 17:26] VITALS: BP 148/78; PULSE 82; TEMP 36.8; O2SAT 96
[2016-08-16] MEDS: FUROSEMIDE 80 MG TAB PO SCH (18:09)
[2016-08-16] MEDS: SPIRONOLACTONE 25 MG TAB PO SCH (18:09)
[2016-08-16] MEDS: WARFARIN SOD 5 MG TAB PO SCH (18:15)
[2016-08-16] MEDS ORDERED: SPIRONOLACTONE 25 MG TAB PO SCH (21:00)
[2016-08-17] VITALS (11 sets, daily range): BP systolic 107–135; BP diastolic 69–86; PULSE 73–91; TEMP 36.4–36.7; O2SAT 94–96
[2016-08-17] MEDS: PIPERACILL/TAZOBAC IV 4.5 GM in DEXTROSE 5% 100ML 100 ML IV SCH ×3 (02:40→16:38)
[2016-08-17] MEDS: VANCOMYCIN INJ 1,500 MG in SODIUM CHLORIDE 0.9% 500ML 500 ML IV SCH ×2 (02:40→13:29)
[2016-08-17] MEDS: LOSARTAN POTASSIUM 50 MG TAB PO SCH (06:05)
[2016-08-17] MEDS: DILTIAZEM HCL 120 MG EXT REL CAP PO SCH (06:05)
[2016-08-17] MEDS: CARVEDILOL 25 MG TAB PO SCH ×2 (06:05→18:33)
[2016-08-17 07:33] LABS: BASO % 0.3 %; BASO ABS # 0.02 K/uL (0-0.2); COMPLETE YES; EOS % 6.7 %; HEMATOCRIT 41.1 % (42-52); IG% 0.3 %; LYMPH % 17.6 %; LYMPH ABS # 1.02 K/uL (1.2-3.4); MEAN CELL VOLUME 85.1 fL (80-100); MEAN CORPUSCULAR HEMOGLOBIN 28.8 pg (25-34); MEAN CORPUSCULAR HGB CONC 33.8 g/dl (32-36); MEAN PLATELET VOLUME 9.8 fL (7.4-10.4); MONO % 13.3 %; NEUT % 61.8 %; PLATELET COUNT 197 K/uL (130-400); RED BLOOD COUNT 4.83 M/uL (4.7-6.1); WHITE BLOOD COUNT 5.79 K/uL (4.8-10.8)
[2016-08-17 07:55] LABS: INR 2.2 (0.9-1.1); PROTHROMBIN TIME (PATIENT) 24.8 SECONDS (9.0-12.0)
[2016-08-17 08:01] LABS: BUN/CREATININE RATIO 14.3 (10-20); CALCIUM 8.8 mg/dl (8.5-10.1); CREATININE 1.2 mg/dl (0.60-1.40); MAGNESIUM 2.3 mg/dl (1.8-2.4); POTASSIUM 3.5 mmol/L (3.5-5.1)
[2016-08-17] MEDS ORDERED: VANCOMYCIN TROUGH ONE (13:30)
--- NOTE | 2016-08-17 15:57 | Pharmacy Progress Note ---
Pharmacy Antibiotic Prog Note Date of Service: Aug 17, 2016. Subjective: The patient is currently receiving Vancomycin 1500 mg IV every 12 hours. The patient is currently on day # 3 of IV therapy. Objective: Height (Feet): 6 Height (Inches): 3.00 Weight (Kilograms): 149.100 Levels: Item Value Date Time Vancomycin Level Trough 16.0 mcg/ml 08/17/16 1316 Lab Results (24hrs): Laboratory Tests Test 08/17/16 07:15 BUN/Creatinine Ratio 14.3 Blood Urea Nitrogen 17 mg/dl Creatinine 1.20 mg/dl White Blood Count 5.79 K/uL Red Blood Count 4.83 M/uL Hemoglobin 13.9 g/dL Hematocrit 41.1 % Mean Corpuscular Volume 85.1 fL Mean Corpuscular Hemoglobin 28.8 pg Mean Corpuscular Hemoglobin Concent 33.8 g/dl Platelet Count 197 K/uL Mean Platelet Volume 9.8 fL Neutrophils (%) (Auto) 61.8 % Lymphocytes (%) (Auto) 17.6 % Monocytes (%) (Auto) 13.3 % Eosinophils (%) (Auto) 6.7 % Basophils (%) (Auto) 0.3 % Neutrophils # (Auto) 3.57 K/uL Lymphocytes # (Auto) 1.02 K/uL Monocytes # (Auto) 0.77 K/uL Eosinophils # (Auto) 0.39 K/uL Basophils # (Auto) 0.02 K/uL Micro Results: Item Value Date Time Blood Culture - Preliminary Resulted 08/15/16 1810 Blood NO GROWTH TO DATE. Blood Culture - Preliminary Resulted 08/15/16 1800 Blood NO GROWTH TO DATE. Recent Pertinent Medications: Item Value Date Time Piperacillin Sod/ 120 ml @ 30 mls/hr 08/16/16 0000 Tazobactam Sod Q8H/IV 08/17/16 0745 4.5 gm/Dextrose Assessment & Plan: Patient continued on vancomycin and zosyn for cellulitis of right foot. Patient is afebrile with no leukocytosis. BC negative to date. ID consulted. Vancomycin * This drug level is: X Therapeutic * Continue 1500 mg (~10 mg/kg) IV every 12 hours. * Patient at risk for drug accumulation given BMI >35 kg/m2 * Goal trough level estimate: ~15 mcg/mL. * A trough has been ordered for: @0130 prior to the 0200 dose. * If renal function declines, order sooner. Zosyn * 4.5 g IV every 8 hours due to BMI >35 kg/m2 Pharmacy will continue to follow and will adjust dose/frequency as necessary. Thank you
--- NOTE | 2016-08-17 17:55 | Progress Note ---
Internal Med Progress Note Date of Service: Aug 17, 2016. Provider Documentation: SUBJECTIVE: resting comfortably was able to ambulate today afebrile eating ok denies any pain OBJECTIVE: Vital Signs-as noted below Exam: General-alert and oriented x 3 Not in distress ENT-normal hearing Neck-no neck masses Lungs-cta b/l no wheezing no crackles Heart-s1 and s2 heard regular rate and rhythm no murmurs' Abdomen-soft bowel sounds present non tender no distension Extremities-mild pedal edema right foot dorsal aspect wound with black eschar and erythema surrounding it Neuro-alert and awake moves extremities Lab data as noted below. ASSESSMENT & PLAN: CELLULITIS RIGHT FOOT wound and cellulitis on right foot from dropped fire wood received DTP vaccine in ER on iv vanco and zosyn await cultures improving consulted ID and appreciate inputs possible change to oral meds in am CHRONIC LEFT VENTRICULAR SYSTOLIC HEART FAILURE Compensated. stable on carvedilol, losartan, spironolactone, furosemide. will monitor CAD asymptomatic Continue carvedilol. CHRONIC AF Rate controlled on carvedilol and diltiazem. Continue warfarin. INR 2.0. INR goal 2.5 to 3.5 for AVR Increased warfarin dose to 10 mg daily- will monitor INR closely while on antibiotic therapy. inr 2.2 today S/P AVR on Coumadin INR goal 2.5 to 3.5 Hep c preliminary results positive notified patient needs pcp followup. HYPERTENSION on carvedilol, diltiazem, losartan, diuretics. will monitor VTE PROPHYLAXIS on warfarin. DISPOSITION possible d/c in am Vital Signs: Date Time Temp Pulse Resp B/P Pulse Ox O2 Delivery O2 Flow Rate FiO2 08/17/16 15:29 36.7 74 20 111/75 95 Room Air 08/17/16 10:08 79 96 08/17/16 08:00 95 Room Air 08/17/16 07:57 36.4 86 18 128/86 95 Room Air 08/17/16 06:04 84 08/17/16 06:03 118/82 08/17/16 00:17 36.7 73 18 107/69 96 Room Air 08/17/16 00:10 96 Room Air Lab Results: Results Past 24 Hours Test 08/17/16 07:15 08/17/16 13:16 Range/Units White Blood Count 5.79 4.8-10.8 K/uL Red Blood Count 4.83 4.7-6.1 M/uL Hemoglobin 13.9 14.0-18.0 g/dL Hematocrit 41.1 42-52 % Mean Corpuscular Volume 85.1 80-100 fL Mean Corpuscular Hemoglobin 28.8 25-34 pg Mean Corpuscular Hemoglobin Concent 33.8 32-36 g/dl Platelet Count 197 130-400 K/uL Mean Platelet Volume 9.8 7.4-10.4 fL Neutrophils (%) (Auto) 61.8 % Lymphocytes (%) (Auto) 17.6 % Monocytes (%) (Auto) 13.3 % Eosinophils (%) (Auto) 6.7 % Basophils (%) (Auto) 0.3 % Neutrophils # (Auto) 3.57 1.4-6.5 K/uL Lymphocytes # (Auto) 1.02 1.2-3.4 K/uL Monocytes # (Auto) 0.77 0.11-0.59 K/uL Eosinophils # (Auto) 0.39 0-0.5 K/uL Basophils # (Auto) 0.02 0-0.2 K/uL RDW Standard Deviation 43.9 36.4-46.3 fL RDW Coefficient of Variation 14.1 11.5-14.5 % Immature Granulocyte % (Auto) 0.3 % Immature Granulocyte # (Auto) 0.02 0.00-0.02 K/uL Prothrombin Time 24.8 9.0-12.0 SECONDS Prothromb Time International Ratio 2.2 0.9-1.1 Sodium Level 138 136-145 mmol/L Potassium Level 3.5 3.5-5.1 mmol/L Chloride Level 102 98-107 mmol/L Carbon Dioxide Level 28 21-32 mmol/L Anion Gap 8.0 3-11 mmol/L Blood Urea Nitrogen 17 7-18 mg/dl Creatinine 1.20 0.60-1.40 mg/dl Est Creatinine Clear Calc Drug Dose 99.6 ml/min Estimated GFR () 74.7 Estimated GFR (Non- 64.4 BUN/Creatinine Ratio 14.3 10-20 Random Glucose 105 70-99 mg/dl Calcium Level 8.8 8.5-10.1 mg/dl Magnesium Level 2.3 1.8-2.4 mg/dl Vancomycin Level Trough 16.0 SEE COMMENT mcg/ml
[2016-08-17] MEDS: FUROSEMIDE 80 MG TAB PO SCH (18:32)
[2016-08-17] MEDS: SPIRONOLACTONE 25 MG TAB PO SCH (18:34)
[2016-08-17] MEDS: WARFARIN SOD 5 MG TAB PO SCH (18:34)
--- NOTE | 2016-08-17 21:45 | Infectious Disease Progress Nt ---
Progress Note Date of Service Aug 17, 2016. Subjective Pt evaluation today including: conversation w/ patient, physical exam, chart review, lab review, review of studies, conversation w/ strategic solutions consultant, review of inpatient medication list Patient feeling better. Decreased pain in his foot. Remains afebrile. Tolerating antibiotic without apparent difficulty. All Other Systems: Reviewed and Negative Medications Current Inpatient Medications Medications (Trade) Dose Ordered Sig/[place] Route Start Time Stop Time Status Last Admin Dose Admin Furosemide (Lasix Tab) 80 mg DAILY@1800 PO 08/16/16 18:00 09/14/16 17:59 08/17/16 18:32 80 MG Carvedilol (Coreg Tab) 25 mg Q12@0600,1800 PO 08/16/16 06:00 09/15/16 05:59 08/17/16 18:33 25 MG Diltiazem HCl (TIAzac CAP) 120 mg DAILY@0600 PO 08/16/16 06:00 09/15/16 05:59 08/17/16 06:05 120 MG Losartan Potassium (coZAAR TAB) 100 mg DAILY@0600 PO 08/16/16 06:00 09/15/16 05:59 08/17/16 06:05 100 MG Spironolactone 25 mg 25 mg DAILY@1800 PO 08/16/16 18:00 09/15/16 17:59 08/17/16 18:34 25 MG Piperacillin Sod/ Tazobactam Sod/ Dextrose (Zosyn Iv/D5 100ml) 120 ml @ 30 mls/hr Q8H IV 08/16/16 00:00 08/26/16 00:00 08/17/16 16:38 30 MLS/HR Vancomycin HCl (Consult) 1 ea UD PRN N/A 08/15/16 22:45 09/14/16 22:44 Piperacillin Sod/ Tazobactam Sod (Consult) 1 ea UD PRN N/A 08/15/16 22:45 09/14/16 22:44 Miscellaneous (Iv Fluids Completed) 1 ea PRN PRN N/A 08/15/16 22:45 08/15/17 22:44 Warfarin Sodium 10 mg 10 mg DAILY@1800 PO 08/16/16 18:00 09/15/16 17:59 08/17/16 18:34 10 MG Vancomycin HCl/ Sodium Chloride (Vancomycin Inj/ Nss 500ml) 530 ml @ 200 mls/hr Q12H IV 08/16/16 14:00 08/25/16 13:59 08/17/16 13:29 200 MLS/HR Objective Vital Signs Date Time Temp Pulse Resp B/P Pulse Ox O2 Delivery O2 Flow Rate FiO2 08/17/16 18:31 91 135/82 96 Room Air 08/17/16 16:00 95 Room Air 08/17/16 15:29 36.7 74 20 111/75 95 Room Air 08/17/16 10:08 79 96 08/17/16 08:00 95 Room Air 08/17/16 07:57 36.4 86 18 128/86 95 Room Air 08/17/16 06:04 84 08/17/16 06:03 118/82 08/17/16 00:17 36.7 73 18 107/69 96 Room Air 08/17/16 00:10 96 Room Air Physical Exam General Appearance: WD/WN, no apparent distress, + obese Eyes: normal inspection, sclerae normal ENT: normal ENT inspection, pharynx normal Neck: supple, no adenopathy, trachea midline Respiratory/Chest: chest non-tender, lungs clear, normal breath sounds, no respiratory distress Cardiovascular: regular rate, rhythm, no gallop, no murmur Abdomen: normal bowel sounds, non tender, soft, no organomegaly Extremities: no calf tenderness, + inflammation, + swelling Neurologic/Psychiatric: alert, oriented x 3 Skin: normal color, no rash, + pertinent finding ( Improving right foot cellulitis) Lymphatic: no adenopathy Laboratory Results Last 24 Hours Test 08/17/16 07:15 08/17/16 13:16 White Blood Count 5.79 K/uL Red Blood Count 4.83 M/uL Hemoglobin 13.9 g/dL Hematocrit 41.1 % Mean Corpuscular Volume 85.1 fL Mean Corpuscular Hemoglobin 28.8 pg Mean Corpuscular Hemoglobin Concent 33.8 g/dl Platelet Count 197 K/uL Mean Platelet Volume 9.8 fL Neutrophils (%) (Auto) 61.8 % Lymphocytes (%) (Auto) 17.6 % Monocytes (%) (Auto) 13.3 % Eosinophils (%) (Auto) 6.7 % Basophils (%) (Auto) 0.3 % Neutrophils # (Auto) 3.57 K/uL Lymphocytes # (Auto) 1.02 K/uL Monocytes # (Auto) 0.77 K/uL Eosinophils # (Auto) 0.39 K/uL Basophils # (Auto) 0.02 K/uL RDW Standard Deviation 43.9 fL RDW Coefficient of Variation 14.1 % Immature Granulocyte % (Auto) 0.3 % Immature Granulocyte # (Auto) 0.02 K/uL Prothrombin Time 24.8 SECONDS Prothromb Time International Ratio 2.2 Sodium Level 138 mmol/L Potassium Level 3.5 mmol/L Chloride Level 102 mmol/L Carbon Dioxide Level 28 mmol/L Anion Gap 8.0 mmol/L Blood Urea Nitrogen 17 mg/dl Creatinine 1.20 mg/dl Est Creatinine Clear Calc Drug Dose 99.6 ml/min Estimated GFR () 74.7 Estimated GFR (Non- 64.4 BUN/Creatinine Ratio 14.3 Random Glucose 105 mg/dl Calcium Level 8.8 mg/dl Magnesium Level 2.3 mg/dl Vancomycin Level Trough 16.0 mcg/ml Assessment and Plan cellulitis of the right foot following traumatic injury, and patient with chronic venous stasis disease, as well as being on Coumadin for atrial fibrillation. For now, combination of vancomycin and Zosyn is appropriate to cover likely is pathogens, and I will adjust based on culture results and clinical response. Hopefully will transition to oral Abx in next day or so. Will discuss.
[2016-08-18] VITALS: O2SAT 95
[2016-08-18] MEDS: PIPERACILL/TAZOBAC IV 4.5 GM in DEXTROSE 5% 100ML 100 ML IV SCH ×2 (00:14→08:12)
[2016-08-18] MEDS: VANCOMYCIN INJ 1,500 MG in SODIUM CHLORIDE 0.9% 500ML 500 ML IV SCH ×3 (02:29→14:00)
[2016-08-18] MEDS: DILTIAZEM HCL 120 MG EXT REL CAP PO SCH (06:38)
[2016-08-18] MEDS: CARVEDILOL 25 MG TAB PO SCH (06:38)
[2016-08-18] MEDS: LOSARTAN POTASSIUM 50 MG TAB PO SCH (06:38)
[2016-08-18 07:52] VITALS: BP 111/76; PULSE 75; TEMP 36.5; O2SAT 96
[2016-08-18 08:03] LABS: BASO % 0.5 %; BASO ABS # 0.03 K/uL (0-0.2); COMPLETE YES; EOS % 6.8 %; HEMATOCRIT 41.1 % (42-52); IG% 0.3 %; LYMPH % 18.5 %; LYMPH ABS # 1.14 K/uL (1.2-3.4); MEAN CELL VOLUME 84.7 fL (80-100); MEAN CORPUSCULAR HEMOGLOBIN 29.3 pg (25-34); MEAN CORPUSCULAR HGB CONC 34.5 g/dl (32-36); MEAN PLATELET VOLUME 9.6 fL (7.4-10.4); MONO % 8.8 %; NEUT % 65.1 %; PLATELET COUNT 205 K/uL (130-400); RED BLOOD COUNT 4.85 M/uL (4.7-6.1); WHITE BLOOD COUNT 6.17 K/uL (4.8-10.8)
[2016-08-18 08:13] LABS: INR 2.2 (0.9-1.1); PROTHROMBIN TIME (PATIENT) 24.3 SECONDS (9.0-12.0)
[2016-08-18 08:42] LABS: BUN/CREATININE RATIO 18.7 (10-20); CALCIUM 8.9 mg/dl (8.5-10.1); MAGNESIUM 2.4 mg/dl (1.8-2.4); POTASSIUM 3.6 mmol/L (3.5-5.1)
--- NOTE | 2016-08-18 13:50 | Infectious Disease Progress Nt ---
Progress Note Date of Service Aug 18, 2016. Subjective Pt evaluation today including: conversation w/ patient, physical exam, chart review, lab review, review of studies, conversation w/ event management consultant, review of inpatient medication list Offers no new complaints. Continues to tolerate Abx. No fever. Right foot pain much improved. All Other Systems: Reviewed and Negative Medications Current Inpatient Medications Medications (Trade) Dose Ordered Sig/Bronwyn Route Start Time Stop Time Status Last Admin Dose Admin Furosemide (Lasix Tab) 80 mg DAILY@1800 PO 08/16/16 18:00 09/14/16 17:59 08/17/16 18:32 80 MG Carvedilol (Coreg Tab) 25 mg Q12@0600,1800 PO 08/16/16 06:00 09/15/16 05:59 08/18/16 06:38 25 MG Diltiazem HCl (TIAzac CAP) 120 mg DAILY@0600 PO 08/16/16 06:00 09/15/16 05:59 08/18/16 06:38 120 MG Losartan Potassium (coZAAR TAB) 100 mg DAILY@0600 PO 08/16/16 06:00 09/15/16 05:59 08/18/16 06:38 100 MG Spironolactone 25 mg 25 mg DAILY@1800 PO 08/16/16 18:00 09/15/16 17:59 08/17/16 18:34 25 MG Piperacillin Sod/ Tazobactam Sod/ Dextrose (Zosyn Iv/D5 100ml) 120 ml @ 30 mls/hr Q8H IV 08/16/16 00:00 08/26/16 00:00 08/18/16 08:12 30 MLS/HR Vancomycin HCl (Consult) 1 ea UD PRN N/A 08/15/16 22:45 09/14/16 22:44 Piperacillin Sod/ Tazobactam Sod (Consult) 1 ea UD PRN N/A 08/15/16 22:45 09/14/16 22:44 Miscellaneous (Iv Fluids Completed) 1 ea PRN PRN N/A 08/15/16 22:45 08/15/17 22:44 Warfarin Sodium 10 mg 10 mg DAILY@1800 PO 08/16/16 18:00 09/15/16 17:59 08/17/16 18:34 10 MG Vancomycin HCl/ Sodium Chloride (Vancomycin Inj/ Nss 500ml) 530 ml @ 200 mls/hr Q12H IV 08/16/16 14:00 08/25/16 13:59 08/18/16 13:33 200 MLS/HR Objective Vital Signs Date Time Temp Pulse Resp B/P Pulse Ox O2 Delivery O2 Flow Rate FiO2 08/18/16 08:00 Room Air 08/18/16 07:52 36.5 75 16 111/76 96 Room Air 08/18/16 00:00 95 Room Air 08/17/16 23:53 36.5 91 20 127/75 94 Room Air 08/17/16 18:31 91 135/82 96 Room Air 08/17/16 16:00 95 Room Air 08/17/16 15:29 36.7 74 20 111/75 95 Room Air Physical Exam General Appearance: WD/WN, no apparent distress, + obese Eyes: normal inspection, EOMI, sclerae normal ENT: normal ENT inspection, pharynx normal Neck: supple, no adenopathy, trachea midline Respiratory/Chest: chest non-tender, lungs clear, normal breath sounds, no respiratory distress Cardiovascular: regular rate, rhythm, no gallop, no murmur Abdomen: normal bowel sounds, non tender, soft, no organomegaly Extremities: non-tender, no calf tenderness Neurologic/Psychiatric: alert, oriented x 3 Skin: normal color, no rash, + pertinent finding (improving right foot cellulitis) Lymphatic: no adenopathy Laboratory Results RUN DATE: 08/17/16 [facility] LAB PAGE 1 RUN TIME: 726 Specimen Inquiry PATIENT: SAGE DENNY Fabi LOC: [id number] U # : [id number] AGE/SX: 61/M ROOM: [facility] REG : 08/15/[address]: Demario Roblero MD : [id number] BED: 1 DIS : STATUS: ADM Collin TLOC: SPEC #: [id number] MEG: 08/15/16 STATUS: RES REQ #: [id number] RECD: 08/15/[address]: Laz Dunbar PA SOURCE: BLOOD ENTR: 08/15/[address]: Bhargav Lopez MD SPDESC: No Doctor, Assigned ORDERED: BLOOD CULTURE Procedure Result Verified Site BLD CULT Preliminary 08/17/16 NO GROWTH TO DATE. Last 24 Hours Test 08/18/16 07:40 White Blood Count 6.17 K/uL Red Blood Count 4.85 M/uL Hemoglobin 14.2 g/dL Hematocrit 41.1 % Mean Corpuscular Volume 84.7 fL Mean Corpuscular Hemoglobin 29.3 pg Mean Corpuscular Hemoglobin Concent 34.5 g/dl Platelet Count 205 K/uL Mean Platelet Volume 9.6 fL Neutrophils (%) (Auto) 65.1 % Lymphocytes (%) (Auto) 18.5 % Monocytes (%) (Auto) 8.8 % Eosinophils (%) (Auto) 6.8 % Basophils (%) (Auto) 0.5 % Neutrophils # (Auto) 4.02 K/uL Lymphocytes # (Auto) 1.14 K/uL Monocytes # (Auto) 0.54 K/uL Eosinophils # (Auto) 0.42 K/uL Basophils # (Auto) 0.03 K/uL RDW Standard Deviation 43.2 fL RDW Coefficient of Variation 14.0 % Immature Granulocyte % (Auto) 0.3 % Immature Granulocyte # (Auto) 0.02 K/uL Prothrombin Time 24.3 SECONDS Prothromb Time International Ratio 2.2 Sodium Level 138 mmol/L Potassium Level 3.6 mmol/L Chloride Level 103 mmol/L Carbon Dioxide Level 25 mmol/L Anion Gap 10.0 mmol/L Blood Urea Nitrogen 19 mg/dl Creatinine 1.00 mg/dl Est Creatinine Clear Calc Drug Dose 119.5 ml/min Estimated GFR () 93.1 Estimated GFR (Non- 80.3 BUN/Creatinine Ratio 18.7 Random Glucose 105 mg/dl Calcium Level 8.9 mg/dl Magnesium Level 2.4 mg/dl Assessment and Plan cellulitis of the right foot following traumatic injury, and patient with chronic venous stasis disease, as well as being on Coumadin for atrial fibrillation. Could transition to oral Abx and recommend clindamycin 300 mg tid. Will discuss.
[2016-08-18] MEDS ORDERED: CLIN300C10 PO (14:13)
[2016-08-18] MEDS ORDERED: LCTX PO (14:13)
--- NOTE | 2016-08-18 14:14 | Discharge Instructions ---
Discharge Instructions Date of Service Aug 18, 2016. Admission Reason for Admission: Cellulitis Of Foot Discharge Discharge Diagnosis / Problem: cellulitis of foot Discharge Goals Goal(s): Decrease discomfort, Improve function Activity Recommendations Activity Limitations: resume your previous activity . Instructions / Follow-Up Instructions / Follow-Up FOLLOWUP WITH FAMILY DOCTOR IN ONE WEEK FOLLOWUP WITH COUMADIN CLINIC FOR COUMADIN DOSING. LAB: PT/INR IN 2-3 DAYS Current Hospital Diet Patient's current hospital diet: AHA Diet (Heart Healthy) Discharge Diet Recommended Diet: AHA Diet (Heart Healthy) Pending Studies Studies pending at discharge: no Medical Emergencies . Who to Call and When: Medical Emergencies: If at any time you feel your situation is an emergency, please call 911 immediately. . Non-Emergent Contact Non-Emergency issues call your: Primary Care Provider . . "Provider Documentation" section prepared by Demario Roblero. VTE Core Measure Inpt VTE Proph given/why not?: Warfarin (Coumadin)
[2016-08-18 14:17] VITALS: BP 111/76; PULSE 75; TEMP 36.5; O2SAT 96
--- NOTE | 2016-08-18 19:04 | Progress Note ---
Internal Med Progress Note Date of Service: Aug 18, 2016. Provider Documentation: SUBJECTIVE: resting comfortably FAMILY IN ROOM AMBULATING DENIES A [place] PAIN AFEBRILE WANTS TO BE DISCHARGED OBJECTIVE: Vital Signs-as noted below Exam: General-alert and oriented x 3 Not in distress ENT-normal hearing Neck-no neck masses Lungs-cta b/l no wheezing no crackles Heart-s1 and s2 heard regular rate and rhythm no murmurs' Abdomen-soft bowel sounds present non tender no distension Extremities-mild pedal edema right foot dorsal aspect wound with black eschar and erythema surrounding it Neuro-alert and awake moves extremities Lab data as noted below. ASSESSMENT & PLAN: CELLULITIS RIGHT FOOT wound and cellulitis on right foot from dropped fire wood received DTP vaccine in ER on iv vanco and zosyn CX NEGATIVE improving consulted ID and appreciate inputs DISCHARGED ON PO CLINDAMYCIN FOR 2 WEEKS F/U WITH PCP CHRONIC LEFT VENTRICULAR SYSTOLIC HEART FAILURE Compensated. stable on carvedilol, losartan, spironolactone, furosemide. will monitor CAD asymptomatic Continue carvedilol. CHRONIC AF Rate controlled on carvedilol and diltiazem. Continue warfarin. INR 2.0. Increased warfarin dose to 10 mg daily- will monitor INR closely while on antibiotic therapy. inr 2.2 today SAYS PATIENT INR GOAL IS 2.0 TO 2.5 BECAUSE OF RETINAL HEMORRHAGE S/P AVR on Coumadin SAYS PATIENT INR GOAL IS 2.0 TO 2.5 BECAUSE OF RETINAL HEMORRHAGE FOLLOWUP WITH COUMADIN CLINIC Hep c preliminary results positive notified patient needs pcp followup. HYPERTENSION on carvedilol, diltiazem, losartan, diuretics. will monitor DISCHARGED HOME Vital Signs: Date Time Temp Pulse Resp B/P Pulse Ox O2 Delivery O2 Flow Rate FiO2 08/18/16 14:17 36.5 75 16 96 Room Air 08/18/16 08:00 Room Air 08/18/16 07:52 36.5 75 16 111/76 96 Room Air 08/18/16 00:00 95 Room Air 08/17/16 23:53 36.5 91 20 127/75 94 Room Air Lab Results: Results Past 24 Hours Test 08/18/16 07:40 Range/Units White Blood Count 6.17 4.8-10.8 K/uL Red Blood Count 4.85 4.7-6.1 M/uL Hemoglobin 14.2 14.0-18.0 g/dL Hematocrit 41.1 42-52 % Mean Corpuscular Volume 84.7 80-100 fL Mean Corpuscular Hemoglobin 29.3 25-34 pg Mean Corpuscular Hemoglobin Concent 34.5 32-36 g/dl Platelet Count 205 130-400 K/uL Mean Platelet Volume 9.6 7.4-10.4 fL Neutrophils (%) (Auto) 65.1 % Lymphocytes (%) (Auto) 18.5 % Monocytes (%) (Auto) 8.8 % Eosinophils (%) (Auto) 6.8 % Basophils (%) (Auto) 0.5 % Neutrophils # (Auto) 4.02 1.4-6.5 K/uL Lymphocytes # (Auto) 1.14 1.2-3.4 K/uL Monocytes # (Auto) 0.54 0.11-0.59 K/uL Eosinophils # (Auto) 0.42 0-0.5 K/uL Basophils # (Auto) 0.03 0-0.2 K/uL RDW Standard Deviation 43.2 36.4-46.3 fL RDW Coefficient of Variation 14.0 11.5-14.5 % Immature Granulocyte % (Auto) 0.3 % Immature Granulocyte # (Auto) 0.02 0.00-0.02 K/uL Prothrombin Time 24.3 9.0-12.0 SECONDS Prothromb Time International Ratio 2.2 0.9-1.1 Sodium Level 138 136-145 mmol/L Potassium Level 3.6 3.5-5.1 mmol/L Chloride Level 103 98-107 mmol/L Carbon Dioxide Level 25 21-32 mmol/L Anion Gap 10.0 3-11 mmol/L Blood Urea Nitrogen 19 7-18 mg/dl Creatinine 1.00 0.60-1.40 mg/dl Est Creatinine Clear Calc Drug Dose 119.5 ml/min Estimated GFR () 93.1 Estimated GFR (Non- 80.3 BUN/Creatinine Ratio 18.7 10-20 Random Glucose 105 70-99 mg/dl Calcium Level 8.9 8.5-10.1 mg/dl Magnesium Level 2.4 1.8-2.4 mg/dl
--- NOTE | 2016-08-18 19:06 | Discharge Summary ---
Discharge Summary Date of Service Aug 18, 2016. Discharge Summary Admission Date: Aug 15, 2016 at 20:27 Discharge Date: Aug 18, 2016 Discharge Disposition: Home Principal Diagnosis: CELLULITIS Secondary Diagnoses/Problems: (1) Anticoagulated on warfarin Status: Chronic (2) Ascending aortic aneurysm Permanent Comment: s/p repair Status: Chronic (3) Atrial fibrillation Status: Chronic (4) Bicuspid aortic valve Permanent Comment: s/p AVR Status: Chronic (5) Coronary artery disease Status: Chronic (6) Hypertension Status: Chronic (7) Systolic CHF, chronic Status: Chronic (8) Vitreous hemorrhage of left eye Status: Resolved Procedures: RT FOOT XRAY: Soft tissue edema. No acute bony abnormality CXR: Stable cardiomegaly. Otherwise negative study Consultations: ID Medication Reconciliation New Medications: Clindamycin Hcl (Clindamycin Hcl) 300 Mg Cap 300 MG PO TID for 14 Days Lactobacillus Acidophilus (Lactinex) Tab 4 TAB PO TID for 15 Days, TAB Continued Medications: Carvedilol (Carvedilol) 25 Mg Tab 25 MG PO BID Diltiazem Hcl Ext Rel (Tiazac) 120 Mg Capcr 120 MG PO QAM, CAP Furosemide (Furosemide) 80 Mg Tab 80 MG PO DAILY@1800 Ibuprofen (Advil) 200 Mg Tab 200 MG PO Q6 PRN for Pain, TAB Losartan Potassium (Cozaar) 100 Mg Tab 100 MG PO QAM, TAB Oxymetazoline Hcl (Afrin) 0.05 % Spr 1 SPRAY BONITA QAM Spironolactone (Spironolactone) 25 Mg Tab 25 MG PO QPM Warfarin Sod (Jantoven) 10 Mg Tab 10 MG PO 5XWK, TAB QAM EXCEPT MONDAY AND MONDAY Warfarin Sod (Jantoven) 5 Mg Tab 7.5 MG PO 2XWK, TAB QAM ON MONDAY AND MONDAY ONLY Admission Information HPI (per Admitting provider): 61 YO male followed by Dr. Kofi Banda for primary care as well as Cardiology. History of bicuspid aortic valve, s/p mechanical AVR, aneurysm ascending aorta, s/p repair, CAD, systolic CHF, chronic AF on warfarin. Dropped firewood on his right foot 1 week prior to admission. Developed progressive pain and swelling of the foot with a small amount of clear drainage. No fever, chills, sweats. Uncertain when last tetanus booster was. Took acetaminophen and ibuprofen with some relief. He was seen in an urgent care facility and referred to the ED. . Physical Exam (per Admitting): General Appearance: no apparent distress, + obese Head: normocephalic, atraumatic Eyes: normal inspection, PERRL, EOMI, sclerae normal ENT: normal ENT inspection, hearing grossly normal, pharynx normal Neck: supple, no adenopathy, thyroid normal, no JVD, trachea midline Respiratory/Chest: lungs clear, no respiratory distress, no accessory muscle use Cardiovascular: no gallop, + irregularly irregular, + pertinent finding ( mechanical valve sounds in aortic position; 1-2+ pretibial edema) Abdomen/GI: normal bowel sounds, non tender, soft, no organomegaly, no pulsatile mass Extremities/Musculoskelatal: + pertinent finding (1-2+ pretibial edema with chronic venous stasis changes; 2 cm ulceration dorsum of right foot; erythema and swelling dorsum right foot) Neurologic/Psych: professor of voice II-XII nml as tested (PERRL, EOMI, no facial palsy, no dysarthria), no motor/sensory deficits (motor strength grossly intact), alert , normal mood/affect, oriented x 3 Skin: warm/dry Lymphatic: no adenopathy Hospital Course CELLULITIS RIGHT FOOT wound and cellulitis on right foot from dropped fire wood received DTP vaccine in ER on iv vanco and zosyn CX NEGATIVE improving consulted ID and appreciate inputs DISCHARGED ON PO CLINDAMYCIN FOR 2 WEEKS F/U WITH PCP CHRONIC LEFT VENTRICULAR SYSTOLIC HEART FAILURE Compensated. stable on carvedilol, losartan, spironolactone, furosemide. will monitor CAD asymptomatic Continue carvedilol. CHRONIC AF Rate controlled on carvedilol and diltiazem. Continue warfarin. INR 2.0. Increased warfarin dose to 10 mg daily- will monitor INR closely while on antibiotic therapy. inr 2.2 today SAYS PATIENT INR GOAL IS 2.0 TO 2.5 BECAUSE OF RETINAL HEMORRHAGE S/P AVR on Coumadin SAYS PATIENT INR GOAL IS 2.0 TO 2.5 BECAUSE OF RETINAL HEMORRHAGE FOLLOWUP WITH COUMADIN CLINIC Hep c preliminary results positive notified patient needs pcp followup. HYPERTENSION on carvedilol, diltiazem, losartan, diuretics. will monitor DISCHARGED HOME Total time spent on discharge = 40MINUTES This includes examination of the patient, discharge planning, medication reconciliation, and communication with other providers. Discharge Instructions Discharge Instructions Date of Service Aug 18, 2016. Admission Reason for Admission: Cellulitis Of Foot Discharge Discharge Diagnosis / Problem: cellulitis of foot Discharge Goals Goal(s): Decrease discomfort, Improve function Activity Recommendations Activity Limitations: resume your previous activity . Instructions / Follow-Up Instructions / Follow-Up FOLLOWUP WITH FAMILY DOCTOR IN ONE WEEK FOLLOWUP WITH COUMADIN CLINIC FOR COUMADIN DOSING. LAB: PT/INR IN 2-3 DAYS Current Hospital Diet Patient's current hospital diet: AHA Diet (Heart Healthy) Discharge Diet Recommended Diet: AHA Diet (Heart Healthy) Pending Studies Studies pending at discharge: no Medical Emergencies . Who to Call and When: Medical Emergencies: If at any time you feel your situation is an emergency, please call 911 immediately. . Non-Emergent Contact Non-Emergency issues call your: Primary Care Provider . . "Provider Documentation" section prepared by Demario Roblero. VTE Core Measure Inpt VTE Proph given/why not?: Warfarin (Coumadin)
[2016-08-19] MEDS ORDERED: VANCOMYCIN TROUGH SCH (01:30)
== END 2016-08-18 14:37 | disposition home or self-care (01) ==
LOC: ENRESERVTM → ENRESERVDT → C.EDB 15:45 → C.MS4W 20:27
PROVIDERS: ADMIT Hospitalist; ATTEND Internal Medicine
DX: L03.115 Cellulitis of right lower limb (principal); S91.301A Unspecified open wound, right foot, initial encounter; W22.8XXA Striking against or struck by other objects, initial encounter; B19.20 Unspecified viral hepatitis C without hepatic coma; I48.2 Chronic atrial fibrillation; I87.8 Other specified disorders of veins; I25.10 Atherosclerotic heart disease of native coronary artery without angina pectoris; I10 Essential (primary) hypertension; I50.22 Chronic systolic (congestive) heart failure; F17.200 Nicotine dependence, unspecified, uncomplicated; Z79.01 Long term (current) use of anticoagulants; Z95.0 Presence of cardiac pacemaker; Z82.49 Family history of ischemic heart disease and other diseases of the circulatory system